=== PATIENT | female | born 1960 | race Caucasian/White ===

== ENCOUNTER 2018-05-23 19:00 | Emergency (ER) | payer SELFPAY ==
[~2018-05-23] VITALS: Ht 165.1 cm; Wt 84.3 kg
[2018-05-23 19:12] VITALS: BP 185/112
[2018-05-23] MEDS ORDERED: SILVER SULF. CRM 1% , 25GM TP ONE (19:30)
[2018-05-23] MEDS ORDERED: FLUO40CA2 PO (19:39)
[2018-05-23] MEDS ORDERED: SILVER SULF. CRM 1% , 25GM ONE (19:41)
[2018-05-23] MEDS ORDERED: BACITRACIN ZINC OINT 500U/GM, 0.9 GM ONE (19:58)
[2018-05-23] MEDS ORDERED: HYDROcodone/APAP 5/325 TABLET ONE (19:58)
[2018-05-23] MEDS ORDERED: HYDROcodone/APAP 5/325 TABLET PO STA (19:58)
== END 2018-05-23 20:41 | disposition home or self-care (01) ==
LOC: ED 20:20
DX: T20.26XA Burn of second degree of forehead and cheek, initial encounter (principal); T23.201A Burn of second degree of right hand, unspecified site, initial encounter; T31.0 Burns involving less than 10% of body surface; X10.2XXA Contact with fats and cooking oils, initial encounter; Y93.89 Activity, other specified; Y92.89 Other specified places as the place of occurrence of the external cause; Y99.8 Other external cause status
CPT/HCPCS: 16020; 36415; 82375; 99284